=== PATIENT | male | born 1945 | race Caucasian/White ===

== ENCOUNTER 2025-04-03 12:44 | Outpatient (CLI) | payer MEDICARE, SELFPAY ==
--- NOTE | ~2025-04-03 | PE_ITS ---
EXAMINATION: PET_PETPSMAST_PT DATE: 04/03/2025 15:20 INDICATION: Prostate cancer TECHNIQUE: 6.267 mCi of Illucix Ga-68([id number]) was administered i.v. Low dose computed tata graphy (CT) images were acquired from the base of the brain to the base of the brain to the proximal thighs for attenuation correction and anatomic localization. Positron emission tomography (PET) image s were acquired in the same distribution beginning 82 minutes after injection. Images including fused PET/CT images were reconstructed in axial, coronal, and sagittal planes. Automated exposure control technique was employed. The dose-length product was 994.88mGy-cm. COMPARISON: None FINDINGS: Head/neck: Typical pattern of symmetric physiologic increased activity in the lacrimal, parotid and submandibula r glands as well as along the mucosa of the nasal and oral cavities, pharynx and hypopharynx. No path ologically enlarged cervical lymphadenopathy or suspicious foci of increased uptake in the visualized head or neck. Chest: 6 mm noncalcified nodule without PSMA uptake at the basilar right lower lobe. Calcified right lower l obe nodule and calcified mediastinal lymph nodes are consistent with old granulomatous disease. No pl eural effusion. Heart size is normal. Aortic valve calcific location. Thoracic aorta is normal in amador iber. Small sliding-type hiatal hernia. No pathologically enlarged or PSMA avid thoracic lymphadenopa thy. Abdomen/pelvis/proximal thighs: Physiologic renal accumulation and excretion of activity in the kidneys, bladder and along portions o f ureters. Couple small nonobstructing bilateral renal stones measuring 2 mm at both kidneys. Mild pr ostatomegaly measuring 4.0 x 3.5 cm. There is increased uptake posteriorly with peripheral zone of th e prostate, the most intense focus in the superiorly on the right near the junction with the right se hu vesicle with maximal SUV of 14.1 consistent with primary prostate cancer. Normal degree and sli ghtly heterogenous pattern of increased uptake throughout the liver and spleen without radiologic cor relate or dominant PSMA avid lesion. There are few small hepatic and splenic calcifications consisten t with old granulomatous disease. Multiple small pancreatic parenchymal calcifications consistent wit h sequela of chronic pancreatitis. The gallbladder and bilateral adrenal glands are normal. Moderate uptake scattered throughout the bowels with typical duodenal and proximal jejunal predominance and wi thout radiologic correlate, also likely physiologic. Small appendicolith at the tip of the normal jojo endix. No other abnormal foci of increased uptake or pathologically enlarged lymphadenopathy in the a bdomen, pelvis or proximal thighs. Musculoskeletal: Severe cervical and lumbar spondylosis. No suspicious lytic, blastic or abnormally PSMA avid bone les ions. IMPRESSION: 1. Increased uptake in the posterior right prostate consistent with primary prostate cancer. No lesio n suspicious for metastatic disease. 2. Indeterminate 6 mm right lower lobe nodule. Consider follow-up low-dose noncontrast chest CT at 6- 12 months. Reviewed, dictated and finalized at location A. IMPRESSION: 1. Increased uptake in the posterior right prostate consistent with primary pro state cancer. No lesion suspicious for metastatic disease. 2. Indeterminate 6 mm right lower lobe nodule. Consider follow-up low-dose nonc ontrast chest CT at 6-12 months.
--- OUTSIDE RECORDS SUMMARY | 2025-04-03 12:54 | XMS_ITS | Data Portability ---
Author Organization [facility], [address] [facility] ([place]) Address [address] 4[address] [place] [address] Care Team Providers Care Structural Ironworker Name Role Phone TAMANNA GIBSON Primary Care Provider [phone] TAMANNA GIBSON Referring Provider [phone] Assessment Encounter Date Assessment Date Assessment LastModified by Organization Details LastModified Time 11/28/2024 11/28/2024 PMH: DM, HTN, HLD, neuropathy, Hx of elevated PSA, OA, chronic pain AAA screening- nonsmoker Lung cancer Screening- does not qualify Colorectal cancer screening- declines Hypertension screening- known diagnosis Tobacco screening- negative Depression screening- negative Diabetes screening- known diagnosis ASCVD- on statin Alcohol use- negative PSA- Previously followed with urology. Declines need for recheck. Immunizations- declines further 1. DM Patient s diabetes is stable on current medication regimen of glimepiride and metformin . No medication changes at this time. Recommend continuing to monitor blood sugars regularly. They are to report changes to our office. Recommend maintaining regular eye exams annually and foot exams daily. Discussed continued lifestyle modifications with reduced carbohydrates and at least 20 minutes per day exercise/activity . Most recent A1c is 6.6. Discussed importance of being on statin medication. Discussed the role of GIO inhibitors for diabetics. Discussed importance of pneumonia vaccines for diabetics. Microalbumin yearly 2. HLD Patient s hyperlipidemia is stable on current medication regimen of atorvastatin. No medication changes at this time. Request that they report changes in symptoms such as myalgias or arthralgias. Continue to follow a low-fat diet, avoid processed and fast foods. Discussed continued active lifestyle at least 20 minutes per day exercise/activity . 3. HTN Hypertension is stable under the current medication regimen of benazepril. No medication changes at this time. Recommend continuing to monitor home blood pressure readings. Request that they report changes in numbers or problems with medication. Discussed continued lifestyle modifications for weight and blood pressure. 4. Elevated PSA No longer following with urology. declines need for follow up. 5. Chronic pain/neuropathy On diclofenac, gabapentin and tramadol Follow up in 6 weeks Labs at that time. I personally spent a total of 45 minutes on the patient on this date of service including both [id number]-krha and bxt-ygiv-zo-face time excluding any separately reportable services. Patient declines need/want for follow up on prior/incidental findings form prior providers other than what was discussed today. Not available 11/28/2024 16:58:41 01/09/2025 01/09/2025 PMH: DM, HTN, HLD, neuropathy, Hx of elevated PSA, OA, chronic pain AAA screening- nonsmoker Lung cancer Screening- does not qualify Colorectal cancer screening- declines Hypertension screening- known diagnosis Tobacco screening- negative Depression screening- negative Diabetes screening- known diagnosis ASCVD- on statin Alcohol use- negative PSA- Previously followed with urology. Declined need for recheck originally. OK'd today. Immunizations- declines further 1. DM Patient s diabetes is stable on current medication regimen of glimepiride and metformin . No medication changes at this time. Recommend continuing to monitor blood sugars regularly. They are to report changes to our office. Recommend maintaining regular eye exams annually and foot exams daily. Discussed continued lifestyle modifications with reduced carbohydrates and at least 20 minutes per day exercise/activity . Most recent A1c is 6.6. Discussed importance of being on statin medication. Discussed the role of GIO inhibitors for diabetics. Discussed importance of pneumonia vaccines for diabetics. Microalbumin yearly 2. HLD Patient s hyperlipidemia is stable on current medication regimen of atorvastatin. No medication changes at this time. Request that they report changes in symptoms such as myalgias or arthralgias. Continue to follow a low-fat diet, avoid processed and fast foods. Discussed continued active lifestyle at least 20 minutes per day exercise/activity . 3. HTN Hypertension is stable under the current medication regimen of benazepril. No medication changes at this time. Recommend continuing to monitor home blood pressure readings. Request that they report changes in numbers or problems with medication. Discussed continued lifestyle modifications for weight and blood pressure. 4. Elevated PSA No longer following with urology. declines need for follow up. 5. Chronic pain/neuropathy On diclofenac, gabapentin and tramadol 6. R shoulder pain Hx of rotator cuff surgery x2 7. Finger tingling. EMG pending. Follow up in 3 months. [email or web address] Not available 01/09/2025 11:19:41 Plan of Treatment Reminders Order Date Submit Date Provider Last Modified By Organization Details Last Modified Time Details Appointments Establish ed Patient 20.EST 2024 10:20A M Dr. Tamanna Gibson Not available Not available Not available Lab PSA, serum or plasma 2024 025 [facility], [address] [place] [address], [id number], 01/09/2025 15:26:33 hemoglobi n A1c + average glucose, QN, blood 2024 025 [facility], [address] [place] [address], [id number], 01/09/2025 16:01:57 CMP, serum or plasma 2024 025 [facility], [facility] [address] [place] [address], [id number], 01/09/2025 15:31:24 lipid panel, serum 2024 025 [facility], [address] [place] [address], [id number], 01/09/2025 15:26:30 microalbu min, urine 2024 025 [facility], [address] [place] [address], [id number], 01/23/2025 04:24:06 Referral None recorded. Procedures nerve conductio n study/EMG , upper extremity (PROC) 2024 025 ANDREI Medina DO, [address] [facility], [place], [address], 02/15/2025 11:42:20 Surgeries None recorded. Imaging None recorded. Medication Orders benazepri l 10 mg tablet [address]/[facility] #[id number], [address] [place] [address], [id number], 01/09/2025 12:08:26 atorvasta tin 40 mg tablet [address]/Pharmacy #[id number], [address] [place] [address], [id number], 01/09/2025 12:08:26 metformin 1,000 mg tablet 2024 025 ANDREI [facility] #[id number], [address] [place] [address], [id number], 01/09/2025 11:03:51 glimepiri de 1 mg tablet 2024 025 [id number], [address] [place] [address], [id number], 01/09/2025 12:08:26 gabapenti n 300 mg capsule 2024 025 [id number], [address] [place] [address], [id number], 01/09/2025 12:08:26 Patient TargetsNo targets recorded. Patient InstructionsNo instructions recorded. Reason for Referral None Reported. Results Created Date Observation Date Name Description Value Unit Range Abnormal Flag Note LastModifiedBy Organization Detail LastModifiedTime 01/10/2001/09/2025 lipid panel , serum lipid profile Not Available [facility] [address] [place] [address], [id number], 01/09/2025 15:26:30 01/10/20 25 01/09/2025 lipid panel , serum cholesterol 149 mg/dL <25-20 0 Not Available [facility] [address], [address], 01/09/2025 15:26:30 01/10/20 25 01/09/2025 lipid panel , serum triglyceride 100 mg/dL 15-200 Not Available [facility] [address] [place] [address], [id number], 01/09/2025 15:26:30 01/10/20 25 01/09/2025 lipid panel , serum HDL 47 mg/dL >40 Not Available [facility] [address] [place] [address], [id number], 01/09/2025 15:26:30 01/10/20 25 01/09/2025 lipid panel , serum LDL, calculated 82 mg/dL 5-100 Not Available [facility] [address] [place] [address], [id number], 01/09/2025 15:26:30 01/10/20 25 01/09/2025 lipid panel , serum VLDL 20 mg/dL 1-40 Not Available [facility] [address] [place] [address], [id number], 01/09/2025 15:26:30 01/10/20 25 01/09/2025 lipid panel , serum chol/HDL 3.2 ratio 0.0-4. 4 Not Available [facility] [address] [place] [address], [id number], 01/09/2025 15:26:30 01/10/20 25 01/09/2025 PSA, serum or plasm a PSA;medicare screen Not Available [facility] [address] [place] [address], [id number], 01/09/2025 15:26:32 01/10/20 25 01/09/2025 PSA, serum or plasm a PSA 24.010 NG/mL 0.04-5 .800 high This test is perfo rmed on a Lionicale ns Atell ica noel zer. Since there are not exist ing stand sharon refer ence units , users shoul d not make shannan rison s betwe en metho ds. Not Available [facility] [address] [place] [address], [id number], 01/09/2025 15:26:32 01/10/20 25 01/09/2025 CMP, serum or plasm a comp. met. panel Not Available [facility] [address] [place] [address], [id number], 01/09/2025 15:31:24 01/10/20 25 01/09/2025 CMP, serum or plasm a sodium 142 mmol/ L 136-14 6 Not Available [facility] [address] [place] [address], [id number], 01/09/2025 15:31:24 01/10/20 25 01/09/2025 CMP, serum or plasm a potassium 4.7 mmol/ L 3.5-5. 1 Not Available [facility] [address] [place] [address], [id number], 01/09/2025 15:31:24 01/10/20 25 01/09/2025 CMP, serum or plasm a chloride 109 mmol/ L 98-110 Not Available [facility] [address] [place] [address], [id number], 01/09/2025 15:31:24 01/10/20 25 01/09/2025 CMP, serum or plasm a CO2 24 mEq/L 20-32 Not Available [facility] [address] [place] [address], [id number], 01/09/2025 15:31:24 01/10/20 25 01/09/2025 CMP, serum or plasm a anion gap 14 mmol/ L 10-22 Not Available [facility] [address] [place] [address], [id number], 01/09/2025 15:31:24 01/10/20 25 01/09/2025 CMP, serum or plasm a glucose 142 mg/dL 70-100 high Not Available [facility] [address] [place] [address], [id number], 01/09/2025 15:31:24 01/10/20 25 01/09/2025 CMP, serum or plasm a calcium 9.3 mg/dL 8.4-10 .4 Not Available [facility] [address] [place] [address], [id number], 01/09/2025 15:31:24 01/10/20 25 01/09/2025 CMP, serum or plasm a total protein 6.5 g/dL 6.4-8. 3 Not Available [facility] [address] [place] [address], [id number], 01/09/2025 15:31:24 01/10/20 25 01/09/2025 CMP, serum or plasm a albumin 4.1 g/dL 3.5-5. 3 Not Available [facility] [address] [place] [address], [id number], 01/09/2025 15:31:24 01/10/20 25 01/09/2025 CMP, serum or plasm a ALP 86 U/L 44 - 127 Not Available [facility] [address] [place] [address], 53054, 01/09/2025 15:31:24 01/10/20 25 01/09/2025 CMP, serum or plasm a AST (SGOT) 20 U/L 10-40 Not Available [facility] [address] [place] [address], 53725, 01/09/2025 15:31:24 01/10/20 25 01/09/2025 CMP, serum or plasm a total bilirubin 0.4 mg/dL 0.2-1. 2 Not Available [facility] [address] [place] [address], 13560, 01/09/2025 15:31:24 01/10/20 25 01/09/2025 CMP, serum or plasm a ALT (SGPT) 16 U/L 8-35 Not Available [facility] [address] [place] [address], [id number], 01/09/2025 15:31:24 01/10/20 25 01/09/2025 CMP, serum or plasm a BUN 21 mg/dL 7-21 Not Available [facility] [address] [place] [address], [id number], 01/09/2025 15:31:24 01/10/20 25 01/09/2025 CMP, serum or plasm a creatinine 0.9 mg/dL 0.7-1. 3 Not Available [facility] [address] [place] [address], [id number], 01/09/2025 15:31:24 01/10/20 25 01/09/2025 CMP, serum or plasm a CKD-epi GFR 87 eGFR was calcu lated using the 2020 CKD-E PI equat ion. (Um Nurse oz Kidne y Disea se has an eGFR less than 60 mL/mi n/1.7 3mm for a perio d of three month s or more. ) This calcu latio n has not been valid ated for patie nt ages <18 or >90 years old. Not Available [facility] [address] [place] [address], [id number], 01/09/2025 15:31:24 01/10/20 25 01/09/2025 hemog lobin A1c + avera ge gluco se, QN, blood hemoglobin A1C Not Available [facility] [address] [place] [address], [id number], 01/09/2025 16:01:57 01/10/20 25 01/09/2025 hemog lobin A1c + avera ge gluco se, QN, blood HGB A1C 6.6 %_A1C 4.3 - 5.6 high Not Available [facility] [address] [place] [address], [id number], 01/09/2025 16:01:57 01/10/20 25 01/09/2025 hemog lobin A1c + avera ge gluco se, QN, blood estimated average glucose 143 mg/dL Not Available [facility] [address] [place] [address], [id number], 01/09/2025 16:01:57 02/16/20 25 02/09/2025 nerve condu ction study /EMG, upper extre mity (PROC ) No observ ation record ed. BARCODE Rosamaria Downey'Caprice DO [address] [place] [address], [id number], 02/15/2025 11:42:20 Result Notes None recorded. Problems Name Problem SNOMED Code Status Onset Date Resolution Date Notes Provider Name and Address Organization Details Recorded Time Polyneuropathy due to type 2 diabetes mellitus 497550780 Active 2024 Tamanna Gibson MD [address] [place] [address], [phone], [facility] 5 13:34:28 Benign hypertension 05178718 Active 2024 Tamanna Gibson MD [address] [place] [address], 26281[address], [facility] 5 13:34:33 Neuropathy 458421956 Active 2024 Tamanna Gibson MD [address] [place] [address], 83392-[address] 3, [facility] 5 13:34:40 Hyperlipidemia 51101771 Active 2024 Tamanna Gibson MD [address] [place] [address], 21588[address] 3, [facility] 5 13:34:51 Numbness of finger 464938918 Active 2024 Tamanna Gibson MD [address] [place] [address], 99301[address], [facility] 5 10:59:27 Prostate specific antigen above reference range 773647545 Active 2024 Tamanna Gibson MD [address] [place] [address], 28278[address]162 3, [facility] 5 11:01:17 Pain in right arm 017662288 Active 2024 Rosamaria Medina MD [address] [place] [address], 96825-[address] 3, [facility] 5 13:25:05 Paresthesia of hand 742457127 Active 2024 Rosamaria Medina MD [address] [place] [address], 66290-956 3, [facility] 5 13:25:09 Problem Notes Documentation Provider Name and Address Organization Details Recorded Time [facility] [address] [place] [address] Grey Berry 79yo M 1945 #[id number] 02/09/2025 Naomie Gibson MD, Grey Berry was seen in our office today 02/09/2025, and a copy of that evaluation is enclosed. Thank you for allowing us to participate in the care of your patient. Please contact us with any questions. Sincerely, Electronically Signed by: ROSAMARIA MEDINA MD, DO Encounter Reason/DateNone recorded 02/09/2025 - 11:00AM - [facility] ([place])ProblemsProblems not reviewed (last reviewed 01/09/2025) Polyneuropathy due to type 2 diabetes mellitus - Onset: 11/28/2024 Hyperlipidemia - Onset: 11/28/2024 Neuropathy - Onset: 11/28/2024 Benign hypertension - Onset: 11/28/2024 Pain in right arm - Onset: 02/09/2025, Right Numbness of finger - Onset: 01/09/2025 Paresthesia of hand - Onset: 02/09/2025 Prostate specific antigen above reference range - Onset: 01/09/2025 Allergies Allergies not reviewed (last reviewed 01/09/2025) NKDA Medications Medications not reviewed (last reviewed 01/09/2025) NameDate Source aspirin 81 mg chewable tabletChew 1 tablet(s) every day by oral route.11/28/24 entered [facility] atorvastatin 40 mg tabletTake 1 tablet(s) every day by oral route.01/09/25 prescribed Tamanna Gibson MD benazepriL 10 mg tabletTAKE 1 TABLET BY MOUTH EVERY DAY01/28/25 filled surescripts diclofenac sodium 50 mg tablet,delayed releaseTAKE 1 TABLET BY MOUTH TWICE A DAY12/15/24 filled surescripts dorzolamide 22.3 mg-timoloL 6.8 mg/mL eye dropsINSTILL 1 DROP INTO BOTH EYES TWICE A DAY12/06/24 filled surescripts gabapentin 300 mg capsuleTAKE 1 CAPSULE BY MOUTH TWICE A DAY01/28/25 filled surescripts glimepiride 1 mg tabletTake 1 tablet(s) every day by oral route.01/09/25 prescribed Tamanna Gibson MD latanoprost 0.005 % eye dropsINSTILL 1 DROP INTO BOTH EYES EVERY NIGHT AT FQBADRS53/11/25 filled surescripts metFORMIN 1,000 mg tabletTake 1 tablet(s) twice a day by oral route.01/09/25 prescribed Tamanna Gibson MD traMADoL 50 mg tabletTAKE 1 TABLET BY MOUTH EVERY 6 HOURS01/16/25 filled surescripts Family HistoryFamily History not reviewed (last reviewed 11/28/2024) Mother - Arthritis - Diabetes mellitus Father - Arthritis - Diabetes mellitus - Heart disease Sister - Diabetes mellitus Daughter - Diabetes mellitus Brother - Heart disease Social HistorySocial History not reviewed (last reviewed 11/28/2024) Substance UseDo you or have you ever smoked tobacco?: Former smokerWhen did you quit smoking?: 11-15 years since last cigaretteHow many packs per day (PPD)?: 5-6 cigarettes/dayHow long have you smoked?: 10 yearsWhen did you quit smoking?: 09/2016What is your level of alcohol consumption?: OccasionalHow many times per week do you consume alcohol?: 1-2 times per weekDo you use any illicit or recreational drugs?: NoWhat is your level of caffeine consumption?: ModerateDo you or have you ever used any other forms of tobacco or nicotine?: NoWhat was the date of your most recent tobacco screening?: 01/22/2025Diet and ExerciseHow many times per week do you exercise?: 5-7 times per weekEducation and OccupationAre you currently employed?: NoWhat is your occupation?: RetiredAdvance DirectiveDo you have an advance directive?: YesWhat is your code status?: OtherSurgical HistorySurgical & Procedure History not reviewed (last reviewed 11/28/2024) Procedure on wound - Barton 1979 Arthroscopic repair of rotator cuff Cataract Surgery HN - Patient indicated: procedure on wound, arthroscopic repair of rotator cuff and Cataract Surgery are not accurate.Additional HistoryNone recordedHistory of Present IllnessNone recordedReview of SystemsNone recordedPhysical ExamNone recordedProcedure DocumentationSC EMG Procedure:Electromyography and Nerve Conduction Report Electrodiagnostic Interpretation: 1. 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 2. There are no electrodiagnostic findings consistent with brachial plexopathy. 3. There are no electrographic findings consistent with cervical radiculopathy. The preliminary results were discussed with the patient. All questions per the patient regarding the study were answered. Referring Physician: Dr. Tamanna Gibson Referral Reason: Right arm pain, right hand paresthesia Clinical History: Patient is a ymalv-aose-kulbqwff 79-year-old male who presents today for evaluation of complaints of pain with radiation into the right upper extremity through the forearm into the third digit. This has been ongoing for about 3 weeks. Sometimes he will have tingling within the third digit but this does not extend into the hand or forearm. This does come and go. He reports no weakness in correlation with this. He does have a history of a prior rotator cuff pathology within the right upper extremity with limitation of range of motion. He has no known historical neck issues. He reports no history of neck or back pain. He does have a history of type 2 diabetes. He currently reports no known history of peripheral neuropathy thyroid disease liver disease renal disease cancer or polio. Physical Examination: Motor: Hand flexion 5/5 b/l, intrinsics 5/5 b/l, ABP 5/5 B/L, Wrist extension 5/5 b/l, biceps 5/5 b/l, triceps 5/5 b/l, deltoid 5/5 b/l Sensory: UE are intact to pinprick bilaterally with the exception of hypersensitivity to pinprick within the 2nd and 5th digit of the right hand in comparison to left Reflexes: brachioradialis 2/4 b/l, biceps 2/4 b/l, triceps 2/4 b/l; Emeli's absent bilaterally Clinical Differential Diagnosis: History and physical examination could be consistent with possible focal mononeuropathy versus brachial plexopathy versus cervical radiculopathy Nerve Conduction Velocity Tests: Motor nerve conduction studies of the right median motor nerve showed an onset latency of 4.8 ms with reduced amplitude of 4.3 mV and reduced conduction velocity of 49 m/s. The right median sensory nerve shows an onset latency of 3.7 ms with a reduced amplitude of 5.9 V and reduced conduction velocity of 38 m/s. The right ulnar sensory nerve and right ulnar motor nerve were found within normal range. The right radial sensory nerve was found within normal range. The right median ulnar fourth digit comparison study right median ulnar palm comparison studies do show mild median to ulnar prolongations. Electromyography: Using a concentric needle EMG of specifically selected muscles was completed per review of the history of physical examination. EMG of specifically selected muscles was performed per review of the history and physical examination. The muscles tested included the right first dorsal interosseous, right pronator teres, right biceps right triceps and right deltoid. The EMG portion of the study was unremarkable. There were no acute denervation changes or chronic reinnervation changes seen.Assessment/Plan1.Right arm painM79.601: Pain in right arm 2.Right hand hwimofqkkiwV24.2: Paresthesia of skin Return to Office Tamanna Gibson MD for Established Patient 20.EST at [facility] ([place]) on 04/11/2025 at 10:20 AM Tamanna Gibson MD [address] [place] [address], [phone], [facility] 02/11/2025 13:55:35 Procedures Surgical History Date Name Laterality Status Provider Name and Address Organization Details Recorded Time 02/10/20 [facility] Procedure completed Rosamaria Medina MD [address] [place] [address], [phone], [facility] 02/09/2025 13:24:59 Cataract Surgery completed [facility] 11/28/2024 16:08:26 arthroscopic repair of rotator cuff completed [facility] 11/28/2024 16:08:40 procedure on wound completed [facility] 11/28/2024 16:09:04 Imaging Results None recorded. Procedure Notes None recorded. Medical Equipment None Reported. Allergies No known drug allergies Medications Name Sig Start Date Stop Date Status Note LastModified by Organization Details LastModified Time latanoprost 0.005 % eye drops INSTILL 1 DROP INTO BOTH EYES EVERY NIGHT AT BEDTIME active Not Available Not Available No t Available atorvastati n 40 mg tablet Take 1 tablet every day by oral route. 2024 active Not Available Not Available Not Avai lable tramadol 50 mg tablet Take 1 tablet every 6 hours by oral route. 2024 active Not Available Not Available Not Avai lable simvastatin 40 mg tablet TAKE 1 TABLET BY MOUTH EVERYDAY AT BEDTIME 11/28 completed Not Available Not Available Not Available glimepiride 1 mg tablet TAKE 1 TABLET BY MOUTH EVERY DAY active Not Available Not Available No t Available metformin 1,000 mg tablet TAKE 1 TABLET BY MOUTH TWICE A DAY active Not Available Not Available No t Available gabapentin 300 mg capsule TAKE 1 CAPSULE BY MOUTH TWICE A DAY active Not Available Not Available No t Available aspirin 81 mg chewable tablet Chew 1 tablet every day by oral route. active Not Available Not Available No t Available dorzolamide 22.3 mg-timolol 6.8 mg/mL eye drops INSTILL 1 DROP INTO BOTH EYES TWICE A DAY active Not Available Not Available No t Available diclofenac sodium 50 mg tablet,rissa yed release TAKE 1 TABLET BY MOUTH TWICE A DAY 2024 active Not Available Not Available Not Avai lable benazepril 10 mg tablet TAKE 1 TABLET BY MOUTH EVERY DAY active Not Available Not Available No t Available Vitals Date Recorded Body height Body mass index (BMI) Body weight Respiratory rate Oxygen saturation Oxygen saturation in Arterial blood by Pulse oximetry Heart rate Systolic And Diastolic Provider Name and Address Organization Details Last Updated DateTime 172.72 cm 28.3 kg/m2 15671.1 8 g 18 /min 96 % 96 % 77 /min 118/64 mm[Hg] Ml Yuly [facility] 16:12:29 Date Recorded Body height Body mass index (BMI) Body weight Respiratory rate Oxygen saturation Oxygen saturation in Arterial blood by Pulse oximetry Heart rate Systolic And Diastolic Provider Name and Address Organization Details Last Updated DateTime 172.72 cm 28.4 kg/m2 52540.7 7 g 18 /min 95 % 95 % 68 /min 112/68 mm[Hg] Ml Rossn [facility] 10:49:27 Social History Question Answer Notes LastModified by SNADEC Details LastModified Time Tobacco Smoking Status Former Smoker Not Available Health Note 01/20/2025 17:54:48 Do You Have An Advance Directive? Yes [email or web address] Information not available 01/20/2025 What Is Your Level Of Caffeine Consumption? Moderate [email or web address] Information not available 01/20/2025 What Is Your Code Status? Other [email or web address] Information not available 01/20/2025 How Many Times Per Week Do You Exercise? 5-7 Times Per Week [email or web address] Information not available 01/20/2025 When Did You Quit Smoking? 11-15yearssin celastcigaret te [email or web address] Information not available 01/20/2025 How Many Packs Per Day (PPD)? 5-6 Cigarettes/da y Information not available 11/28/2024 How Long Have You Smoked? 10 Years Information not available 11/28/2024 When Did You Quit Smoking? 09/2016 Information not available 11/28/2024 What Was The Date Of Your Most Recent Tobacco Screening? 01/22/2025 [email or web address] Information not available 01/20/2025 What Is Your Relationship Status? [email or web address] Information not available 01/20/2025 Sex: Unknown Functional Status Question Answer Note LastModified by SNADEC Details LastModified Time How many times per week do you consume alcohol? 1-2 times per week [email or web address] Information not available 01/20/2025 Do you use any illicit or recreational drugs? No [email or web address] Information not available 01/20/2025 Do you or have you ever used any other forms of tobacco or nicotine? No [email or web address] Information not available 01/20/2025 What is your level of alcohol consumption? Occasional [email or web address] Information not available 01/20/2025 Are you currently employed? No [email or web address] Information not available 01/20/2025 What is your occupation? Retired [email or web address] Information not available 01/20/2025 What is your exercise level? Moderate [email or web address] Information not available 01/20/2025 Mental Status None recorded. Family History Relationship Description Onset Age of this Age Resolved Age Notes LastModified by Organization Details LastModified Time Mother Arthritis [email or web address] Not available 01/20/2025 17:54:47 Mother Diabetes mellitus [email or web address] Not available 2024 17:54:47 Father Arthritis [email or web address] Not available 01/20/2025 17:54:47 Father Diabetes mellitus [email or web address] Not available 2024 17:54:47 Father Heart disease [email or web address] Not available 2024 17:54:47 Sister Diabetes mellitus [email or web address] Not available 2024 17:54:47 Daughter Diabetes mellitus [email or web address] Not available 2024 17:54:47 Brother Heart disease [email or web address] Not available 2024 17:54:47 Medical History Condition Response Diabetes Y Anxiety Disorder N Bleeding Disorder N Attention-deficit Hyperactivity Disorder N High Blood Pressure N Arthritis Y Hyperlipidemia N Cancer N Stroke N Thyroid Problems N Asthma N Depression N COPD N Anemia N Seizures N Heart Disease N Fibromyalgia N Osteoporosis N Kidney Disease N Immunizations Vaccine Type Date Status Note Provider Nam e and Address Organization Details Recorded Time COVID-19, mRNA, LNP-S, PF, 100 mcg/0.5mL dose or 50 mcg/0.25mL dose 11/26/2020 ashley orlando [facility] 11/28/2024 16:04:32 COVID-19, mRNA, LNP-S, PF, 100 mcg/0.5mL dose or 50 mcg/0.25mL dose 12/25/2020 ashley orlando [facility] 11/28/2024 16:04:32 COVID-19, mRNA, LNP-S, PF, 100 mcg/0.5mL dose or 50 mcg/0.25mL dose 07/18/2021 ashley orlando [facility] 11/28/2024 16:04:32 Past Encounters Encounter ID Performer Location Encounter Start Date Encounter Closed Date Diagnosis/Indication Diagnosis SNOMED-CT Code Diagnosis ICD10 Code Diagnosis Note [id number] Tamanna Gibson MD [facility] ([place]) [address] [place] [address] 11/28/2024 14:48:09 11/28/2024 17:02:33 Polyneuropathy due to type 2 diabetes mellitus 826111962 E11.42 Z79.4 Benign hypertension 1072 5009 I10 Neuropathy 766407542 G62 .9 Hyperlipidemia 51269315 E78.49 Adult heal th examination 967592768 Z00.00 [id number] Tamanna Gibson MD [facility]) [address] [place] [address] 01/09/2025 10:29:18 01/09/2025 11:40:30 Polyneuropathy due to type 2 diabetes mellitus 445799768 E11.42 Z79.4 Benign hypertension 1072 5009 I10 Neuropathy 100972278 G62 .9 Hyperlipidemia 82410737 E78.49 Numbness of finger 77629 6001 R20.0 Prostate s pecific antigen above reference range 052154484 R97.20 Long-term current use of oral hypoglycemic medication 9929104165 21886 Z79.84 [id number] Rosamaria Medina MD [address] [facility] ([place]) [address] [place] [address] 02/09/2025 11:32:51 02/09/2025 13:19:42 Pain in right arm 547472449 M79.601 Paresthesia of hand 3090 75111 R20.2 Health Concerns Section Related Observation LastModified by Organization Detai ls LastModified Time None Recorded Concern Status LastModified by Organization Details LastModified Time None Recorded Advance Directives Directive Y: Payers Insurance Date Sequence Insurance Name Policy Number Policy Hammonds Covered Member ID Hammonds Member ID Guarantor Name 02/09/2025 1 [employer] (MEDICARE REPLACEMENT/ ADVANTAGE - PPO) [id number] Grey Berry [id number] Grey Berry Notes Date Note Type Note Provider Name and Address Organization Details Recorded Time 11/28/2024 text/html Patient is here today for a NPV to establish care. Previous PCP: Kuldeep. -Colonoscopy (45+): never had done. Declines-Lung screen: former smoker-Vaccines- Pneumonia (65+): declines-Influen za: declines-Shingri x (50+): declines-Tetanus /Tdap (every 10yrs): declines-COVID: x3-RSV (60+): declines Tamanna Gibson MD [address] [place] [address], [phone], [facility] 11/28/2024 19:52:35 01/09/2025 text/html Patient is here today for 6 week follow up. Needs a refill of metformin today. Tamanna Gibson MD [address] [place] [address], [phone], [facility] 01/12/2025 11:04:16
--- OUTSIDE RECORDS SUMMARY | 2025-04-03 12:54 | XMS_ITS | Encounter Summary ---
Author Organization [facility] Address [facility] [place] [address] Care Team Providers Care Automatic Operator Name Role Phone Jef Reaz MD Primary Care Provider [phone] Encounter Details Date Type Department Care Team (Late st Contact Info) Description 02/21/2025 Prep for Procedure [facility] 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 Gender Identity Not on file Sexual Orientation Not on file documented as of this encounter Plan of Treatment Not on file documented as of this encounter Results * (ABNORMAL) BASIC METABOLIC PANEL (02/28/2025 10:58 AM CDT) GLUCOSE 130(H) 70 - 99 MG/DL 02/28/2025 11:39 AM CDT [facility] BUN 17 7 - 18 MG/DL 02/28/2025 11:39 AM CDT [facility] CREATININE S/P/B 0.78 0.7 - 1.3 MG/DL 02/28/2025 11:39 AM CDT [facility] SODIUM S/P/B 142 136 - 145 MMOL/L 02/28/2025 11:39 AM CDT [facility] POTASSIUM S/P/B 5.1 3.5 - 5.1 MMOL/L 02/28/2025 11:39 AM CDT [facility] CHLORIDE S/P/B 112 97 - 115 MMOL/L 02/28/2025 11:39 AM CDT [facility] CO2 27.0 21 - 32 MMOL/L 02/28/2025 11:39 AM CDT [facility] CALCIUM S/P/B 9.5 8.5 - 10.1 MG/DL 02/28/2025 11:39 AM CDT [facility] ANION GAP 3.0 2 - 10 MMOL/L 02/28/2025 11:39 AM CDT [facility] BUN CREATININE RATIO 21.8 6 - 26 02/28/2025 11:39 AM CDT [facility] GFR ESTIMATE >90 >90 ML/MIN/1.7 3 M2 02/28/2025 11:39 AM CDT [facility] Comment: NOTE: eGFR is not calculated for patients <18 years of age or gender unknown. This is an estimated GFR calculation using the new CKD EPI creatinine equation without race and so does not require a correction factor for race. This estimated GFR should not be used for calculating drug doses. 02/28/2025 10:5 8 AM CDT Nic Isabel MD LABORATORY Final Result [facility] [address] [place] [address], [place] [phone] documented in this encounter Visit Diagnoses Diagnosis Preop examination- Primary Preoperative examination, unspecified documented in this encounter Care Teams Automatic Operator Relationship Specialty Start Date End Date Jef Reza MD [address] [place] [address] PCP - General FAMILY PRACTICE 01/23/25 documented as of this encounter
--- OUTSIDE RECORDS SUMMARY | 2025-04-03 12:54 | XMS_ITS | Clinical Summary ---
Author Organization [facility] Address [address] [place] [address] Care Team Providers Care Twisting Department End Finder Name Role Phone Jef Reza MD Primary Care Provider [phone] Allergies No known active allergies Medications metFORMIN (GLUCOPHAGE) 1000 MG tablet Take 1 tablet (1,000 mg total) by mouth 2 (two) times daily with meals. 01/09/2025 Active glimepiride (AMARYL) 1 MG tablet Take 1 tablet (1 mg total) by mouth every morning before breakfast. 01/09/2025 Active benazepril (LOTENSIN) 10 MG tablet Take 1 tablet (10 mg total) by mouth daily. 01/09/2025 Active simvastatin (ZOCOR) 40 MG tablet Take 1 tablet (40 mg total) by mouth nightly at bedtime. Active diclofenac EC (VOLTAREN) 50 MG tablet Take 1 tablet (50 mg total) by mouth 2 (two) times daily. Active gabapentin (NEURONTIN) 300 MG capsule Take 1 capsule (300 mg total) by mouth 3 (three) times daily. 01/09/2025 Active dorzolamide-alma olol (COSOPT) 2-0.5 % Solution Place 1 drop into both eyes 2 (two) times daily. Active latanoprost (XALATAN) 0.005 % ophthalmic solution Place 1 drop into both eyes nightly at bedtime. 11/28/2024 Active traMADol (ULTRAM) 50 MG tablet Take 1 tablet (50 mg total) by mouth every 6 (six) hours as needed. Active aspirin 81 MG chewable tablet Chew 1 tablet (81 mg total) by mouth daily. Active Encounters Date Type Department Care Team Description 02/28/2025 1:42 PM CDT Anesthesia Event [place] [address] Andriy Valenzuela MD [facility] U[facility] 02/28/2025 1:36 PM CDT - 02/28/2025 2:27 PM CDT Surgery [place] [address] Trell Schilling MD TRANSRECTAL ULTRASOUND GUIDED PROSTATE BIOPSY 02/28/2025 10:52 AM CDT - 02/28/2025 3:30 PM CDT Hospital Encounter [facility] [place] [address] Trell Schilling MD Discharge Disposition: Home or Self Care (Routine Discharge) 02/28/2025 Travel 02/21/2025 Prep for Procedure [facility] [place] [address] Trell Schilling MD 01/23/2025 2:30 PM CDT - 01/23/2025 11:59 PM CDT Hospital Encounter [facility] [place] [address] Ana May III, MD Discharge Disposition: Home or Self Care (Routine Discharge) 01/23/2025 Orders Only [facility] [place] [address] Ana May III, MD 01/23/2025 Travel from Last 3 Months Family History Medical History Relation Comments Diabetes Other type 2 Heart Disease Other Relation Status Comments Other Social History Tobacco Use Types Packs/Day Years Used Date Smoking Tobacco: Former Cigarettes 0.1 10 S tarted: 1985 Smokeless Tobacco: Never Alcohol Use Standard Drinks/Week Comments Yes 8.3 (1 standard drink = 0.6 oz p ure alcohol) Sex and Gender Information Value Date Recorded Sex Assigned at Male 01/23/2025 2:29 PM CDT Legal Sex Male 10:36 PM [employer] Gender Identity Not on file Sexual Orientation Not on file Last Filed Vital Signs Vital Sign Reading Time Taken Comments Blood Pressure 139/79 02/28/2025 3:22 PM CDT Pulse 65 02/28/2025 3:22 PM CDT Temperature 36.1 C (97 F) 02/28/2025 3:22 PM CDT Respiratory Rate 16 02/28/2025 3:22 PM CDT Oxygen Saturation 95% 02/28/2025 3:22 PM CDT Inhaled Oxygen Concentration - - Weight 83.4 kg (183 lb 13.8 oz) 025 11:30 AM CDT Height 172.7 cm (5' 8) 02/28/2025 11:3 0 AM CDT Body Mass Index 27.96 02/28/2025 11:30 AM CDT Plan of Treatment Health Maintenance Due Date Last Done Comments Hepatitis C 1964 DTaP, Tdap and Td Vaccines ( 1 - Tdap) 1965 Pneumococcal Vaccine: 50+ Years (1 of 1 - PCV) 1996 Zoster Vaccines (1 of 2) 1996 Annual Medicare Wellness Visit 2011 RSV Immunization or 60+ Years (1 - 1-dose 75+ series) 2021 COVID-19 Vaccine ( - 2023-2 5 season) 2024 07/18/2021, 12/25/2020, 11/26/2020 Meningococcal B Vaccine Aged Out No l onger eligible based on patient's age to complete this topic Meningococcal Vaccine Aged Out No hilario macy eligible based on patient's age to complete this topic RSV Immunizations Under 20 Months Aged Out No longer eligible b ased on patient's age to complete this topic Procedures Procedure Name Priority Date/Time Associated Diagnosis Comments BIOPSY OF PROSTATE,NEEDLE/PU [facility] 02/28/2025 1:42 PM CDT PSA ELEVATION R97.20 Case Notes SCHED BY FAX ON 02/14/25 [facility] PHONE ASSESS Special Needs [facility] [phone] POCT GLUCOSE - DOCKED DEVICE Routine 02/28/2025 12:01 PM CDT BASIC METABOLIC PANEL STAT 02/28/2025 10:58 AM CDT Preop examination PATHOLOGY Routine 02/28/2025 12:00 AM CDT PROSTATE SPECIFIC ANTIGEN,TOTAL Routine 01/23/2025 2:46 PM CDT Enlarged prostate HC URINALYSIS AUTO W/MICRO Routine 01/23/2025 2:40 PM CDT Enlarged prostate from Last 3 Months Results * (ABNORMAL) POCT glucose (02/28/2025 12:01 PM CDT) GLUCOSE POC 119(H) 70 - 99 mg/dL 02/28/2025 12:05 PM CDT [facility] 02/28/2025 12:0 1 PM CDT Trell Schilling MD POCT ORDERABLES - DEVICE Final R esult [facility] [address] [address], [place] [phone] * (ABNORMAL) BASIC METABOLIC PANEL (02/28/2025 10:58 AM CDT) GLUCOSE 130(H) 70 - 99 MG/DL 02/28/2025 11:39 AM CDT [facility] BUN 17 7 - 18 MG/DL 02/28/2025 11:39 AM CDT [facility] CREATININE S/P/B 0.78 0.7 - 1.3 MG/DL 02/28/2025 11:39 AM CDT [facility] SODIUM S/P/B 142 136 - 145 MMOL/L 02/28/2025 11:39 AM CDT [facility] POTASSIUM S/P/B 5.1 3.5 - 5.1 MMOL/L 02/28/2025 11:39 AM CDT [facility] CHLORIDE S/P/B 112 97 - 115 MMOL/L 02/28/2025 11:39 AM CDT [facility] CO2 27.0 21 - 32 MMOL/L 02/28/2025 11:39 AM CDT [facility] CALCIUM S/P/B 9.5 8.5 - 10.1 MG/DL 02/28/2025 11:39 AM CDT [facility] ANION GAP 3.0 2 - 10 MMOL/L 02/28/2025 11:39 AM CDT [facility] BUN CREATININE RATIO 21.8 6 - 26 02/28/2025 11:39 AM CDT [facility] GFR ESTIMATE >90 >90 ML/MIN/1.7 3 M2 02/28/2025 11:39 AM CDT [facility] Comment: NOTE: eGFR is not calculated for patients <18 years of age or gender unknown. This is an estimated GFR calculation using the new CKD EPI creatinine equation without race and so does not require a correction factor for race. This estimated GFR should not be used for calculating drug doses. 02/28/2025 10:5 8 AM CDT Trell Schilling MD LABORATORY Final Result [facility] [address] [place] [address], * Pathology (02/28/2025 12:00 AM CDT) PATHOLOGY [facility] Department of Laboratory Medicine [address] [place] [address] , extension [phone] Pathology Report Surgical Pathology Report Name: MICHAEL NUNEZ Specimen #: [id number] Age: 7 1945 (Age: 79) Location: [facility] Sex: M Procedure Date: 02/28/2025 Hospital #: [id number] Date Received: 03/01/2025 Date Reported: 03/02/2025 Provider: TRELL SCHILLING MD Source: A: Prostate, right lateral base, needle biopsy B: Prostate, right medial base, needle biopsy C: Prostate, right lateral mid, needle biopsy D: Prostate, right medial mid, needle biopsy E: Prostate, right lateral apex, needle biopsy F: Prostate, right medial apex, needle biopsy G: Prostate, left lateral base, needle biopsy H: Prostate, left medial base, needle biopsy I: Prostate, left lateral mid, needle biopsy J: Prostate, left medial mid, needle biopsy K: Prostate, left lateral apex, needle biopsy L: Prostate, left medial apex, needle biopsy Clinical History: PSA elevation. FINAL DIAGNOSIS: A. 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 B. Prostate, right medial base, core biopsy: - Acinar adenocarcinoma, grade group 1 (Melvin score 3+3=6), involving 90% of a single core. C. Prostate, right lateral mid, core biopsy: - Acinar adenocarcinoma, grade group 1 (Collette score 3+3=6), involving 50% of a single core. D. Prostate, right medial mid, core biopsy: - Acinar adenocarcinoma, grade group 1 (Collette score 3+3=6), involving 60% of a single core. E. Prostate, right lateral apex, core biopsy: - Acinar adenocarcinoma, grade group 1 (Melvin score 3+3=6), involving 10% of a single core. F. Prostate, right medial apex, core biopsy: - Acinar adenocarcinoma, grade group 1 (Melvin score 3+3=6), involving 30% of a single core. G. Prostate, left lateral base, core biopsy: - Benign prostatic parenchyma. H. Prostate, left medial base, core biopsy: - Acinar adenocarcinoma, grade group 2 (Collette score 3+4=7, with 30% pattern 4), involving 60% of a single core. I. Prostate, left lateral mid, core biopsy: - Benign prostatic parenchyma. J. Prostate, left medial mid, core biopsy: - Benign prostatic parenchyma. K. Prostate, left lateral apex, core biopsy: - Benign prostatic parenchyma. L. Prostate, left medial apex, core biopsy: - Benign prostatic parenchyma. Gross Description: A. Received in formalin, labeled with a patient label and as right lateral base is a single less than 0.1 cm in diameter delicate white-phan tissue core that has a length of 1.2 cm. The specimen is entirely submitted in cassette A1. B. Received in formalin, labeled with a patient label and as right medial base is a single less than 0.1 cm in diameter delicate white-phan tissue core that has a length of 1.3 cm. The specimen is entirely submitted in cassette B1. C. Received in formalin, labeled with a patient label and as right lateral mid is a single less than 0.1 cm in diameter delicate white-phan tissue core that has a length of 1.0 cm. The specimen is entirely submitted in cassette C1. D. Received in formalin, labeled with a patient label and as right medial mid is a single less than 0.1 cm in diameter delicate white-phan tissue core that has a length of 1.5 cm. The specimen is entirely submitted in cassette D1. E. Received in formalin, labeled with a patient label and as right lateral apex is a single less than 0.1 cm in diameter delicate white-phan tissue core that has a length of 1.0 cm. The specimen is entirely submitted in cassette E1. F. Received in formalin, labeled with a patient label and as right medial apex is a single less than 0.1 cm in diameter delicate white-phan tissue core that has a length of 1.5 cm. The specimen is entirely submitted in cassette F1. G. Received in formalin, labeled with a patient label and as left lateral base is a single less than 0.1 cm in diameter delicate white-phan tissue core that has a length of 1.5 cm. The specimen is entirely submitted in cassette G1. H. Received in formalin, labeled with a patient label and as left medial base is a single less than 0.1 cm in diameter delicate white-phan tissue core that has a length of 1.5 cm. The specimen is entirely submitted in cassette H1. I. Received in formalin, labeled with a patient label and as left lateral mid is a single less than 0.1 cm in diameter delicate white-phan tissue core that has a length of 1.3 cm. The specimen is entirely submitted in cassette I1. J. Received in formalin, labeled with a patient label and as left medial mid is a single less than 0.1 cm in diameter delicate white-phan tissue core that has a length of 1.5 cm. The specimen is entirely submitted in cassette J1. K. Received in formalin, labeled with a patient label and as left lateral apex is a single less than 0.1 cm in diameter delicate white-phan tissue core that has a length of 1.5 cm. The specimen is entirely submitted in cassette K1. L. Received in formalin, labeled with a patient label and as left medial apex are 2 less than 0.1 cm in diameter delicate white-phan tissue cores 0.3 and 1.2 cm in length. The specimen is entirely submitted in cassette L1. Gross examination (when applicable), interpretation, and sign out were performed at [facility], [address] [place] [address]. Electronically Signed Out JELLY SANTOS MD [facility] TISSUE PROSTATE / Unknown 12:00 PM CDT Tissue specimen (specimen) PROSTATE / Unknown 02/28/2025 12:00 PM CDT Tissue specimen (specimen) PROSTATE / Unknown 02/28/2025 12:00 PM CDT Tissue specimen (specimen) PROSTATE / Unknown 02/28/2025 12:00 PM CDT Tissue specimen (specimen) PROSTATE / Unknown 02/28/2025 12:00 PM CDT Tissue specimen (specimen) PROSTATE / Unknown 02/28/2025 12:00 PM CDT Tissue specimen (specimen) PROSTATE / Unknown 02/28/2025 12:00 PM CDT Tissue specimen (specimen) PROSTATE / Unknown 02/28/2025 12:00 PM CDT Tissue specimen (specimen) PROSTATE / Unknown 02/28/2025 12:00 PM CDT Tissue specimen (specimen) PROSTATE / Unknown 02/28/2025 12:00 PM CDT Tissue specimen (specimen) PROSTATE / Unknown 02/28/2025 12:00 PM CDT Tissue specimen (specimen) PROSTATE / Unknown 02/28/2025 12:00 PM CDT Trell Schilling MD PATHOLOGY/CYTOLOGY ORDERABLES Fi nal Result [facility] [address] [place] [address], [id number] * (ABNORMAL) PROSTATE SPECIFIC ANTIGEN, DIAG (01/23/2025 2:46 PM CDT) PSA 40.81(H) <4.00 NG/ML 01/23/2025 3:48 PM CDT [facility] Comment: ASSAY PERFORMED BY ENZYME IMMUNOASSAY METHODOLOGY USING SIEMENS DIMENSION REAGENT. PATIENT RESULTS DETERMINED BY ASSAYS FROM DIFFERENT MANUFACTURERS AND/OR BY DIFFERENT METHODS MAY NOT BE COMPARABLE. 01/23/2025 2:46 PM CDT us Ana May III, MD LABORATORY Final Re sult [facility] [address] [place] [id number], * (ABNORMAL) URINALYSIS (01/23/2025 2:40 PM CDT) COLOR (U) YELLOW 01/23/2025 3:26 PM CDT [facility] TRANSPARENCY CLEAR 01/23/2025 3:26 PM CDT [facility] SPECIFIC GRAVITY (U) 1.030(H) 1.000 - 1.025 01/23/2025 3:26 PM CDT [facility] Comment:EQUAL TO OR GREATER THAN U PH 5.0 5.0 - 8.0 01/23/2025 3:26 PM CDT [facility] LEUKOCYTES (U) NEGATIVE NEGATIVE 01/23/2025 3:26 PM CDT [facility] NITRITES NEGATIVE NEGATIVE 01/23/2025 3:26 PM CDT [facility] PROTEIN RANDOM (U) TRACE(A) NEGATIVE 01/23/2025 3:26 PM CDT [facility] GLUCOSE (U) NEGATIVE NEGATIVE 01/23/2025 3:26 PM CDT [facility] KETONES MG/DL (U) TRACE(A) NEGATIVE 01/23/2025 3:26 PM CDT [facility] UROBILINOGEN 0.2 <1.0 EU/DL 01/23/2025 3:26 PM CDT [facility] BILIRUBIN (U) NEGATIVE NEGATIVE 01/23/2025 3:26 PM CDT [facility] BLOOD (U) TRACE(A) NEGATIVE 01/23/2025 3:26 PM CDT [facility] WBC/HPF NONE SEEN(A) 0 - 5 /HPF 01/23/2025 3:26 PM CDT [facility] RBC/HPF RARE(A) 0 - 5 /HPF 01/23/2025 3:26 PM CDT [facility] EPI/LPF NONE SEEN /LPF 01/23/2025 3:26 PM CDT [facility] BACTERIA (U) RARE /HPF 01/23/2025 3:26 PM CDT [facility] URINE SPECIMEN OBTAINED BY CLEAN CATCH PROCEDURE / Unknown 01/23/2025 2:40 PM CDT us Ana May III, MD URINE ORDERABLES Final R esult [facility] [address] [place] [address], from Last 3 Months Insurance [employer] Care Teams Twisting Department End Finder Relationship Specialty Start Date End Date Jef Reza MD [address] [place] [id number] PCP - General FAMILY PRACTICE 01/23/25
== END 2025-04-03 12:45 | disposition home or self-care (01) ==
PROVIDERS: Visit Provider Urology
DX: C61 Malignant neoplasm of prostate (principal); R91.1 Solitary pulmonary nodule
CPT/HCPCS: 78815; A9596